=== PATIENT | male | born 1970 | race Caucasian/White ===

== ENCOUNTER 2024-11-23 06:41 | Emergency (ER) | payer OTHER, SELFPAY ==
--- OUTSIDE RECORDS SUMMARY | 2024-02-27 16:30 | XMS_ITS ---
Author Organization [facility] Address Formerly [facility] [address] [id number] Care Team Providers Care Safety And Skill Based Pay Manager Name Role Phone Marci Cole Primary Care Provider Unavaila Keshawn Bernabe Unavailable [phone] Migration, Provider Unavailable Unavailable REASON FOR VISIT Multum To Medispan Conversion Encounter Medications Medication SIG (Take, Route, Frequency, Duration) Notes Start Date End Date Status Flonase Allergy Relief 50 MCG/ACT as directed in each nostril once a day; Duration: 30 day(s) 06/26/2021 Active Encounters Encounter Location Date Provider Diagnosis [facility] [place] [address] [address] [id number] 02/27/2024 Provider Migration Tinnitus, bilateral H93.13 Assessments Encounter Date Diagnosis (ICD Code) Assessment Notes Treatment Notes Treatment Clinical Notes Section Notes 02/27/2024 Tinnitus, bilateral (ICD-10 - H93.13) Plan Of Treatment Medication Medication Name Sig Start Date Stop Date Notes Flonase Allergy Relief 50 MCG/ACT as directed in each nostril once a day; Duration: 30 day(s) 06/26/2021 Progress Notes * Wesley BALDERASDOB:1970 (54 yo M)Acc No.[id number]:02/27/2024 Patient: Wesley CABAN Provider: Masoud Hassan :1970 A ge:53 Y S ex:Male Date:02/27/2024 Address[facility] Pcp:Marci Cole Subjective: * Chief Complaints: * 1 . Multum To Medispan Conversion Encounter. * Medical History: Objective: * Vitals: * Physical Examination: Assessment: * Assessment: 1. T innitus, bilateral - H93.13 (Primary) Plan: * Treatment: * Images: * Electronic signature of Prov ider Migration on 11/23/2024 at 07:59 AM CDT Sign off status: Pending * Provider: Masoud knet Migration Date: 1 04/29/2023 Generated for Tahir bobo/Mariann/Dionesmitting on: 0 11/23/2024 07:59 AM CDT
[2024-11-23] VITALS (8 sets, daily range): BP systolic 115–172; BP diastolic 55–101; PULSE 73–81; RESP 12–20; TEMP 36.6; O2SAT 94–98
--- NOTE | ~2024-11-23 | XR_ITS ---
EXAMINATION: XR chest 2V DATE: 11/23/2024 07:38 INDICATION: Chest pain TECHNIQUE: PA and lateral views of the chest were obtained. COMPARISON: Chest radiograph and CT dated 06/11/2015 FINDINGS: The lungs are clear with no focal airspace opacities, pulmonary edema, pleural effusion or pneumothorax. The cardiomediastinal silhouette is normal. Spinal stimulator leads project over the central canal at the lower thoracic spine with distal tip at level of T10-T11. IMPRESSION: 1. No acute cardiopulmonary disease. Reviewed, dictated and finalized at location A.
--- NOTE | 2024-11-23 06:45 | ECG_ITS ---
Test Date: 2024-11-23 06:49:05 Measurements Intervals [place] Rate: 72 P: 19 WA: 200 QRS: 75 QRSD: 106 T: 42 QT: 384 QTc: 423 Interpretive Statements SINUS RHYTHM INCOMPLETE RIGHT BUNDLE BRANCH BLOCK [90+ ms QRS DURATION, TERMINAL R IN V1/V2, 40+ ms S IN I/aVL/V4/V5/V6] BORDERLINE ECG No previous ECG available for comparison Electronically Signed On 11-23-2024 16:14:42 CDT by Rian Frias M.D.
[2024-11-23 07:04] LABS: Hematocrit 48.5 % (42.0-52.0); Hemoglobin 15.8 g/dL (14.0-18.0); Immature Granulocyte Percent A 0.5 % (0-0.5); Lymphocytes Absolute Auto 1.88 K/mm3 (0.9-3.2); Mean Corpuscular HGB Conc 32.6 g/dl (32-36); Mean Corpuscular Hemoglobin 27.0 pg (26-34); Mean Corpuscular Volume 82.8 fl (80-100); Nucleated Red Blood Cells Absolute Auto 0.000 K/mm3 (0.0-0.012); Nucleated Red Blood Cells Perc 0.0 % (0.0-0.2); Platelet Count Result 315 k/mm3 (150-375); Red Blood Count 5.86 M/mm3 (4.6-6.20); White Blood Count 13.5 K/mm3 (4.5-10.0)
[2024-11-23 07:13] LABS: Alanine Aminotransferase 31 U/L (6-50); Albumin Level 4.6 g/dL (3.5-5.1); Alkaline Phosphatase 80 U/L (38-126); Anion Gap 12 mmol/L (4-12); Aspartate Amino Transferase 28 U/L (17-59); Bilirubin,Total 0.6 mg/dL (0.2-1.3); Blood Urea Nitrogen 8 mg/dL (9-20); Calcium 9.5 mg/dL (8.4-10.2); Carbon Dioxide 23 mmol/L (22-30); Chloride 102 mmol/L (98-107); Estimated CRCL calculation 116 ml/min; Estimated Glomerular Filt Rate > 60; Glucose 113 mg/dL (65-110); Lipase 45 U/L (23-300); Potassium 4.1 mmol/L (3.4-5.0); Sodium 137 mmol/L (137-145); Total Protein 8.1 g/dL (6.3-8.2)
--- NOTE | 2024-11-23 07:15 | ED_ITS ---
HPI - General Adult General Chief complaint: Chest Pain Stated complaint: Chest Pain Time Seen by Provider: 11/23/24 06:55 History of Present Illness HPI narrative: 54-year-old male present to the emergency department for evaluation for left- sided chest pain and body tingling. Patient states that he was driving his vehicle and had some left-sided chest pain. Patient reports he does often have this chest pain typically that is resolved with belching. this morning patient states the knee chest pain did resolve but then he had tingling into his left arm and also had waves of full body tingling. Upon arrival to the emergency department patient denies any chest pain shortness of breath and denies any full body tingling or tingling into his left arm. Patient did have follow-up with his high lead yarder a few weeks ago and is going to schedule an cardiac echo. Patient does follow-up with cardiology at [facility] and patient states his most recent stress test was less than 5 years ago. Patient is a smoker Related Data Home Medications ?Medication ?Instructions ?Recorded ?Confirmed ?Last Taken ?Type buspirone 10 mg tablet 10 mg PO BID 04/15/19 Unkno wn History lisinopril 20 mg tablet 20 mg PO DAILY 04/15/19 Unk nown History lithium carbonate 150 mg capsule 150 mg PO QID 0 Unknown History metformin 500 mg tablet 500 mg PO BID 04/15/19 Unkn own History Allergies Allergy/AdvReac Type Severity Reaction Status Date / Time No Known Allergies Allergy Verified 11/23/24 06:42 Review of Systems 2 Review of Systems: All systems reviewed & are unremarkable except as noted in HPI and below PMFSH Family History Family History (System 02/23/19 @ 20:44 by Rosie Richardson) Sibling Family history of malignant neoplasm Mother Family history of heart disease in male family member before age 55 Social History Social History (System 02/23/19 @ 20:44 by Rosie Richardson) Alcohol intake: current Exam 2 Narrative: APPEARANCE: Well appearing, no pain, no distress, well-nourished. HEAD: normocephalic, atraumatic. EYES: PERRLA/EOMI, conjunctivae clear. NOSE: Normal no drainage EARS:TMS clear with good light reflex. THROAT: Pharynx clear, no exudate. NECK: Supple. No adenopathy, no masses. RESPIRATORY: Airway patent, respirations nonlabored. Clear to auscultation bilaterally, no rales, rhonchi, wheezing. CARDIOVASCULAR: Regular rate and rhythm without murmurs rubs or gallops. ABDOMINAL: Soft, nontender, nondistended, normal bowel sounds MUSCULOSKELETAL: Moves all extremities. Strength/ROM intact, No edema, No calf tenderness. NEURO: Alert. Cranial nerves II through XII intact. Good gait. Good coordination SKIN: Warm, dry. Normal Color Course Vital Signs Vital signs: Vital Signs Temperature 98 F 11/23/24 06:47 Pulse Rate 79 11/23/24 06:47 Respiratory Rate 20 11/23/24 06:47 Blood Pressure 172/101 H 11/23/24 06:47 Pulse Oximetry 98 11/23/24 06:47 Oxygen Delivery Room Air 11/23/24 06:47 Temperature 98 F 11/23/24 06:47 Pulse Rate 76 11/23/24 10:54 Respiratory Rate 12 11/23/24 10:54 Blood Pressure 127/80 11/23/24 10:54 Pulse Oximetry 98 11/23/24 10:54 Oxygen Delivery Room Air 11/23/24 07:02 Medical Decision Making [facility] Narrative Medical decision making narrative: 54-year-old male presents to the emergency department for evaluation for left- sided chest pain. Patient denies any current chest pain. Patient is currently afebrile but does have a leukocytosis of 13.5. Hemoglobin is 15.8. Patient has an INR of 1.02. D-dimer is less than 0.27. No acute abnormalities on the CMP patient had negative serial troponins. EKGs showed no evidence of acute STEMI but did show a right bundle branch block. Chest x-ray shows no acute cardiopulmonary abnormality. With patient's heart score and symptoms and workup in the emergency department patient is suitable for discharge to close follow-up with primary care physician for additional outpatient cardiac testing. All questions concerns were addressed patient was comfortable the plan for discharge and close follow-up. Differential Diagnosis Differential Diagnosis: ACS, pneumonia, pneumothorax, pulmonary embolism, anxiety, hyperventilation, gastritis Vital Signs Vital Signs: Vital Signs Temperature 98 F 11/23/24 06:47 Pulse Rate 79 11/23/24 06:47 Respiratory Rate 20 11/23/24 06:47 Blood Pressure 172/101 H 11/23/24 06:47 Pulse Oximetry 98 11/23/24 06:47 Oxygen Delivery Room Air 11/23/24 06:47 Temperature 98 F 11/23/24 06:47 Pulse Rate 76 11/23/24 10:54 Respiratory Rate 12 11/23/24 10:54 Blood Pressure 127/80 11/23/24 10:54 Pulse Oximetry 98 11/23/24 10:54 Oxygen Delivery Room Air 11/23/24 07:02 Lab Data Lab results reviewed: Yes I reviewed the patient's lab results. 11/23/24 06:55 11/23/24 06:55 Labs: Lab Results 11/23/24 11/23/24 Range/Units 06:55 09:44 WBC 13.5 H (4.5-10.0) K/mm3 RBC 5.86 (4.6-6.20) M/mm3 Hgb 15.8 (14.0-18.0) g/dL Hct 48.5 (42.0-52.0) % MCV 82.8 (80-100) fl MCH 27.0 (26-34) pg MCHC 32.6 (32-36) g/dl RDW 14.4 (11.5-14.5) % Plt Count 315 (150-375) k/mm3 MPV 10.5 H (7.4-10.4) fl Immature Gran % (Auto) 0.5 (0-0.5) % Neut % (Auto) 78.3 H (45.5-73.1) % Lymph % (Auto) 13.9 L (18.3-44.2) % [place] % (Auto) 4.9 (2.6-8.5) % Eos % (Auto) 1.7 (0-4.4) % Baso % (Auto) 0.7 (0.2-1.2) % Lymph # (Auto) 1.88 (0.9-3.2) K/mm3 [place] # (Auto) 0.7 H (0.1-0.6) K/mm3 Eos # (Auto) 0.2 (0-0.3) K/mm3 Baso # (Auto) 0.1 (0.0-0.1) K/mm3 Abs Immat Gran (auto) 0.07 H (0.00-0.031) K/mm3 Absolute Neuts (auto) 10.6 H (1.3-6.7) K/mm3 Absolute Nucleated RBC 0.000 (0.0-0.012) K/mm3 Nucleated RBC % 0.0 (0.0-0.2) % PT 13.7 (11.1-14.7) Seconds INR 1.0 APTT 34.1 (22.3-36.8) Seconds D-Dimer < 0.27 (<0.48) ug/mL Sodium 137 (137-145) mmol/L Potassium 4.1 (3.4-5.0) mmol/L Chloride 102 (98-107) mmol/L Carbon Dioxide 23 (22-30) mmol/L Anion Gap 12 (4-12) mmol/L BUN 8 L (9-20) mg/dL Creatinine 1.10 (0.7-1.3) mg/dL Estim Creat Clear Calc 116 ml/min Estimated GFR > 60 (59 - ) Glucose 113 H (65-110) mg/dL Calcium 9.5 (8.4-10.2) mg/dL Total Bilirubin 0.6 (0.2-1.3) mg/dL AST 28 (17-59) U/L ALT 31 (6-50) U/L Alkaline Phosphatase 80 (38-126) U/L Troponin I < 0.012 < 0.012 (0.000-0.034) ng/mL Total Protein 8.1 (6.3-8.2) g/dL Albumin 4.6 (3.5-5.1) g/dL Lipase 45 (23-300) U/L Imaging Data Radiologist's impression: Impressions Chest X-Ray 11/23/24 07:40 IMPRESSION: 1. No acute cardiopulmonary disease. ECG Data EKG #1: EKG Interpretation: normal rate, sinus rhythm, no ectopy, non-specific ST changes, normal QRS and NL axis Discharge Plan Discharge Clinical Impression: Atypical chest pain Patient Disposition: Home Condition: Stable Instructions: Antibiotic Form, Chest Pain (ED) Additional Instructions: Have close follow-up with your primary care physician for additional outpatient cardiac testing. If you have any worsening symptoms then please call or return to the emergency department. Patient Language: Indonesian Prescriptions: No Action pantoprazole 40 mg tablet,delayed release (DR/EC) 40 mg PO BID Qty: 180 1RF atorvastatin 20 mg tablet 20 mg PO DAILY Qty: 90 1RF buspirone 10 mg tablet 10 mg PO BID lithium carbonate 150 mg capsule 150 mg PO QID metformin 500 mg tablet 500 mg PO BID lisinopril 20 mg tablet 20 mg PO DAILY Follow-up/Referrals: Chuck Srinivasan MD [Physician, Family Practice] UNKNOWN,DOCTOR [Primary Care Provider] Stand Alone Forms: Work/School Release IP Quality HEART score for chest pain patients History: slightly suspicious ECG: normal Age: > 45 and < 65 years Risk factors: 1 or 2 risk factors Troponin: < or = to 1x normal limit Heart score: 2
[2024-11-23 07:25] LABS: Troponin I < 0.012 ng/mL (0.000-0.034)
[2024-11-23 07:27] LABS: INR 1.0; Prothrombin Time 13.7 Seconds (11.1-14.7)
[2024-11-23 07:28] LABS: Partial Thromboplastin Time 34.1 Seconds (22.3-36.8)
--- OUTSIDE RECORDS SUMMARY | 2024-11-23 08:00 | XMS_ITS | Patient Health Record ---
Author Organization [facility] Address [address] [address] [place], [place] [id number] Care Team Providers Care Packaging Inspector Name Role Phone Marci Cole Primary Care Provider Unavaila Keshawn Bernabe Unavailable [phone] Migration, Provider Unavailable Unavailable Allergies No Known Allergies Reason For Referral No Information Medications Medication SIG (Take, Route, Frequency, Duration) Notes Start Date End Date Status Flonase Allergy Relief 50 MCG/ACT as directed in each nostril once a day; Duration: 30 day(s) 06/26/2021 Active Problems Problem Type SNOMED Code ICD Code Onset Dates Problem Status W/U Status Risk Notes Problem Mixed conductive and sensorineural hearing loss, bilateral (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, 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) Active confirmed Problem Bilateral tinnitus (5046108910308) Tinnitus, bilateral (H93.13) Active confirmed Problem Bilateral chronic serous otitis (282522983) Chronic serous otitis media, bilateral (H65.23) Active confirmed Problem Dysfunction of bilateral eustachian tubes (6309029843962763 ) Other specified disorders of Eustachian tube, bilateral (H69.83) Active confirmed Problem Tobacco use (883517982) Tobacco use (Z72.0) Active confirmed Problem Type II diabetes mellitus without complication (009011629) Type 2 diabetes mellitus without complications (E11.9) Active confirmed Encounters Encounter Location Date Provider Diagnosis [facility] [place] [address] [address] [place], [place] [phone] 02/27/2024 Provider Migration Tinnitus, bilateral H93.13 Assessments Encounter Date Diagnosis (ICD Code) Assessment Notes Treatment Notes Treatment Clinical Notes Section Notes 02/27/2024 Tinnitus, bilateral (ICD-10 - H93.13) Plan Of Treatment No Information Insurance Providers Payer Name Payer Address Payer Phone Subscriber Number Group Number Insured Name Patient Relationship to Insured Coverage Start Date Coverage End Date [facility] [address] [place] [phone] [id number] Wesley Hyman Self - patient is the insured Medical (General) History Medical History History ICD Code Pertinent Medical History: Ear problems, Mitral valve prolapse, Surgical History Surgery Date(Month/Year) back sx x2 knee surgery x2 hand sx
--- OUTSIDE RECORDS SUMMARY | 2024-11-23 08:00 | XMS_ITS | Clinical Summary ---
Author Organization [facility] Address [address] [place] [address] Care Team Providers Care Patternmaker Pressure Cast Name Role Phone None, Provider MD Primary Care Provider Unavaila ble Allergies No known active allergies Medications lidocaine viscous 2 % solution Take 5 mLs by mouth as needed for Pain. Gargle and spit 20 mL 2 Active tirzepatide (MOUNJARO) 7.5 MG/0.5ML injection Inject 7.5 mg into the skin once a week. Active LISINOPRIL OR Active ondansetron (ZOFRAN-ODT) 4 MG disintegrating tablet Take 1 tablet (4 mg total) by mouth every 8 (eight) hours as needed for Nausea. 20 tablet 4 Active Social History Tobacco Use Types Packs/Day Years Used Date Smoking Tobacco: Every Day Cigarettes Smokeless Tobacco: Never Tobacco Cessation:Ready to Q uit: Not Asked; Counseling Given: Not Answered Sex and Gender Information Value Date Recorded Sex Assigned at Not on file Legal Sex Male 8:24 PM CDT Gender Identity Not on file Sexual Orientation Not on file Last Filed Vital Signs Vital Sign Reading Time Taken Comments Blood Pressure 150/89 07/22/2023 8:15 PM CDT Pulse 83 07/22/2023 8:15 PM CDT Temperature 36.2 C (97.1 F) 07/22/2023 6:16 PM CDT Respiratory Rate 12 07/22/2023 8:15 PM CDT Oxygen Saturation 94% 07/22/2023 8:15 PM CDT Inhaled Oxygen Concentration - - Weight 170.1 kg (375 lb) 07/22/2023 6:16 PM CDT Height 198.1 cm (6' 6) 07/22/2023 6:16 PM CDT Body Mass Index 43.34 07/22/2023 6:16 PM CDT Plan of Treatment Health Maintenance Due Date Last Done Comments Colorectal Cancer Screening Colonoscopy (10 Years) 1972 Annual Physical 1975 Hepatitis C 1990 DTaP, Tdap and Td Vaccines ( 1 - Tdap) 1991 Hepatitis B Vaccines (1 of 3 - 19+ 3-dose series) 1991 Pneumococcal Vaccine: 50+ Ye ars (1 of 2 - PCV) 1991 Zoster Vaccines (1 of 2) 2022 COVID-19 Vaccine (1 - 2023-2 5 season) 2024 Meningococcal B Vaccine Aged Out No l onger eligible based on patient's age to complete this topic Meningococcal Vaccine Aged Out No jake elizabeth eligible based on patient's age to complete this topic RSV Immunizations Under 20 Months Aged Out No longer eligible based on patient's age to complete this topic Insurance [employer] Care Teams Patternmaker Pressure Cast Relationship Specialty Start Date End Date None, Provider, MD PCP - General UNKNOWN PHYSICIAN SPECIALTY 07/22/23
--- OUTSIDE RECORDS SUMMARY | 2024-11-23 08:00 | XMS_ITS | Clinical Summary ---
Author Organization [facility] [employer] Address [address] [address] Care Team Providers Care Coffee Grower Name Role Phone Donis Hanley MD Primary Care Provider Source Comments [facility] [employer],non-owned Affiliates and Associated Physician Practices is amultiple site organization consisting of ambulatory clinics and hospital sitesin [place], [place], [place] and [place]. This disclosure is being madepursuant to the Care Everywhere program and may not contain all information available regarding this patient. Last updated 17.[facility] [employer] Allergies No known active allergies Medications * Be aware that medications may not be up to date on this document. Alwaysverify current medications with the patient. pantoprazole EC (Protonix) 40 MG tabletIndication s:Gastroesophage al reflux disease, unspecified whether esophagitis present Take 1 (one) tablet by mouth 2 times daily 180 tablet 10/13/19 25 Active lisinopril (Prinivil; Zestril) 30 MG tabletIndication s:Hypertension, unspecified type Take 1 (one) tablet by mouth once daily 90 tablet 10/13/19 25 Active FLUoxetine (PROzac) 40 MG capsuleIndicatio ns:Moderate recurrent major depression (HCC) Take 1 (one) capsule by mouth every morning 90 capsule 4 10/13/19 25 Active tirzepatide (Mounjaro) 15 MG/0.5ML injectionIndicat ions:Diabetes mellitus without complication (HCC) Inject 15 (fifteen) mg subcutaneously every 7 days (once a week) 6 mL 10/13/19 25 Active Active Problems Problem Noted Date Diagnosed Date Bilateral chronic serous otitis media 10/24/2024 Bilateral tinnitus 10/24/2024 Dysfunction of both eustachian tubes 10/24/2024 Mixed conductive and sensorineural hearing loss, bilateral 10/24/2024 Tobacco use 10/24/2024 Type 2 diabetes mellitus without complication Leukocytosis 12/10/2021 Encounters Date Type Department Care Team Description 11/08/2024 9:40 AM CDT Office Visit [facility] [address] [facility] [facility] [address] [place] [address] Nathalie Salamanca MD Incomplete right bundle branch block (Primary Dx); RBBB (right bundle branch block); Hypertension, unspecified type; Tobacco use; SOB (shortness of breath); Chest pain, unspecified type 10/12/2024 11:40 AM CDT Office Visit [address] [address] Jumana Cole PA-C Diabetes mellitus without complication (HCC) (Primary Dx); Obesity, Class II, BMI 35-39.9; Hypertension, unspecified type; Hyperlipidemia, unspecified hyperlipidemia type; Gastroesophageal reflux disease, unspecified whether esophagitis present; History of Barber's esophagus; RBBB (right bundle branch block); MAHAMED (obstructive sleep apnea); Moderate recurrent major depression (HCC) 10/12/2024 Travel 09/22/[address] [address] Jumana Cole PA-C MEDICATION REFILL 09/22/2024 Refill [facility] [address] [facility] [address] [place] [address] Jumana Cole PA-C MEDICATION REFILL from Last 3 Months Family History Medical History Relation Name Comments Cancer - Thyroid Brother Diabetes; unknown type Father Obesity Father Brain Tumor Mother COPD - Chronic Obstructive Pulmonary Disease Mother Heart Failure Mother Cancer - Colon Neg Hx Colon polyps Neg Hx Relation Name Status Comments Brother Alive Father Mother Alive Social History Tobacco Use Types Packs/Day Years Used Date Smoking Tobacco: Every Day Cigarettes 1 35.7 Started: 03/1989 Smokeless Tobacco: Never Tobacco Cessation:Ready to Q uit: Not Asked; Counseling Given: Not Answered Alcohol Use Standard Drinks/Week Comments Yes 0 (1 standard drink = 0.6 oz pur e alcohol) occassionally PHQ-2 Answer Date Recorded Patient Health Questionnaire-2 Score 4 10/11/2024 Sex and Gender Information Value Date Recorded Sex Assigned at Not on file Legal Sex Male 12:45 PM CDT Gender Identity Not on file Sexual Orientation Not on file Last Filed Vital Signs Vital Sign Reading Time Taken Comments Blood Pressure 130/86 11/08/2024 9:09 AM CDT Pulse 80 11/08/2024 9:09 AM CDT Temperature 36.1 C (96.9 F) 10/12/2024 11:21 AM CDT Respiratory Rate 13 10/12/2024 11:21 AM CDT Oxygen Saturation 98% 11/08/2024 9:09 AM CDT Inhaled Oxygen Concentration - - Weight 155.6 kg (343 lb) 11/08/2024 9:09 AM CDT Height 198.1 cm (6' 6) 11/08/2024 9:09 AM CDT Body Mass Index 39.64 11/08/2024 9:09 AM CDT Plan of Treatment Upcoming Encounters Date Type Department Care Team (Late st Contact Info) Description 11/30/2024 3:30 PM CDT Appointment [facility] [address] [facility] [address] [place] [address] 01/03/2025 3:10 PM CDT Office Visit [facility] [address] [place] [address] Nathalie Salamanca MD [address] [facility] [address] [place] [address] 01/18/2025 2:20 PM DESIGN MAINTENANCE ENGINEER Office Visit [facility] [address] [place] [address] Jumana Cole PA-C [address] [place] [address] 05/25/2025 9:20 AM CDT Office Visit [facility] - Family Medicine [address] [place] [address] [place] [address] [place] [phone] Health Maintenance Due Date Last Done Comments COLOGUARD (AGES 45-75) - COLON CA SCREENING 1972 CT COLONOGRAPHY - COLON CA SCREENING 1972 FIT - COLON CA SCREENING 1972 FLEX SIG - COLON CA SCREENING 1972 HIV SCREENING 1987 HEPATITIS C SCREENING 04/04/1990 DTAP/TDAP/TD VACCINES (1 - Tdap) 1991 HEPATITIS B VACCINE (1 of 3 - 19+ 3-dose series) 1991 PNEUMOCOCCAL VACCINE 50+ (1 of 2 - PCV) 1991 DIABETES-STATIN 2012 LUNG CANCER SCREENING 2022 ZOSTER VACCINE (1 of 2) 2022 EGD SURVEILLANCE 11/23/2023 10/28/2019, 10/28/2019 DIABETES - URINE PROTEIN SCREENING 03/16/2024 DIABETES RETINOPATHY SCREENING 10/24/2024 DIABETES-FOOT EXAM WITH MONOFILAMENT 10/24/2024 DIABETES-HGB A1C 10/24/2024 COVID-19 VACCINE ( - season) 2024 INFLUENZA VACCINE (#1) 2024 DIABETES-SERUM CREATININE 11/23/20242023, 07/22/2023, 07/22/2023, Additional history exists COLON MONITORING 10/27/2029 10/28/2019, 10/28/2019 COLONOSCOPY - COLON CA SCREENING 10/27/2029 10/28/2019, 10/28/2019 Colorectal Cancer Screening 10/27/2029 DEPRESSION SCREENING Completed 10/12/2024, 12/24/19 22 HIB VACCINE Aged Out No longer eligi ble based on patient's age to complete this topic HPV VACCINE Aged Out No longer eligi ble based on patient's age to complete this topic MENINGOCOCCAL (Group B) VACCINE SHARED DECISION-MAKING Aged Out No longer eligible based on patient's age to complete this topic MENINGOCOCCAL GROUPS A/C/Y/W VACCINE Aged Out No longer eligible based on patient's age to complete this topic Procedures Procedure Name Priority Date/Time Associated Diagnosis Comments EKG 12-LEAD Routine 11/08/2024 10:26 AM CDT RBBB (right bundle branch block) COMPREHENSIVE METABOLIC PANEL Routine 01/16/2022 11:39 AM CDT Leukocytosis, unspecified type ENDOSCOPY, COLON, DIAGNOSTIC Routine 10/28/2019 11:35 AM CDT EGD Routine 10/28/2019 11:09 AM CDT from Last 3 Months or Most Recently Relevant to Health Maintenance Results * EKG 12-Lead (11/08/2024 10:26 AM CDT) Ventricular Rate 79 BPM [facility] MED GRP MUSE Atrial Rate 79 BPM [facility] ME D GRP MUSE P-R Interval 180 ms SJ SL M ED GRP MUSE QRS Duration ms 110 ms SJ S L MED GRP MUSE Q-T Interval ms 390 ms SJ S L MED GRP MUSE QTC Calculation (Bezet) 447 ms S[facility] SL MED GRP MUSE Calculated P Mason 36 degrees S[facility] SL MED GRP MUSE Calculated R Mason 120 degrees SJ SL MED GRP MUSE Calculated T Mason 48 degrees S[facility] SL MED GRP MUSE Interpretation EKG Normal sinus rhythm Right axis deviation Incomplete right bundle branch block Abnormal ECG Confirmed by MARK PEREZ ([id number]) on 11/11/2024 5:29:01 PM [facility] MED GRP MUSE 11/08/2024 10:2 6 AM CDT 11/11/2024 5:29 PM CDT us Nathalie Salamanca MD ECG ORDERABLES Edited Result - Final [facility] MED GRP MUSE * (ABNORMAL) COMPREHENSIVE METABOLIC PANEL (01/16/2022 11:39 AM CDT) Glucose 136(H) 70 - 105 mg/dL [facility] INSURANCE BILL BUN 11 8.9 - 20.6 mg/dL [facility] INSURANCE BILL Creatinine 1.05 0.72 - 1.25 mg/dL [facility] INSURANCE BILL eGFR by CKD-EPI 87(L) >=90 mL/min/1.7 3 m2 [facility] INSURANCE BILL Sodium 137 136 - 145 mmol/L [facility] INSURANCE BILL Potassium 4.7 3.5 - 5.1 mmol/L [facility] INSURANCE BILL Chloride 100 98 - 107 mmol/L [facility] INSURANCE BILL CO2 27 23 - 31 mmol/L [facility] INSURANCE BILL Calcium 9.4 8.4 - 10.4 mg/dL [facility] INSURANCE BILL Protein Total 7.1 6.4 - 8.3 gm/dL [facility] INSURANCE BILL Albumin 4.4 3.5 - 5.2 gm/dL [facility] INSURANCE BILL Bilirubin Total 0.4 0.2 - 1.2 mg/dL [facility] INSURANCE BILL Alkaline Phosphatase 63 40 - 150 U/L [facility] INSURANCE BILL AST 27 5 - 34 U/L [facility] INSURANCE BILL ALT 45 0 - 61 U/L [facility] INSURANCE BILL Blood BLOOD SPECIMEN / Unknown 01/16/2022 11:39 AM CDT 01/16/2022 Narrative Resulting Agency Comment Lab Testing performed at: [facility] [address] [place] [id number] Guera Machado MD LAB - CHEMISTRY ORDERABLES Final Result [facility] INSURANCE BILL [address] [place] [address] * ENDOSCOPY, COLON, DIAGNOSTIC (10/28/2019 11:35 AM CDT) Report Endoscopy POC _ Patient Name: Dawson Hyman Procedure Date: 10/28/2019 11:35 AM Date of : 1970 Admit Type: Outpatient Age: 49 Gender: Male Attending MD: Roger Christopher , _ Procedure: Colonoscopy Indications: Change in bowel habits Providers: Roger Christopher (Doctor) Patient Profile: This is a 49 year old male. Medicines: Monitored Anesthesia Care Complications: No immediate complications. _ Procedure: Pre-Anesthesia Assessment: - Prior to the procedure, a History and Physical was performed, and patient medications and allergies were reviewed. The patient's tolerance of previous anesthesia was also reviewed. The risks and benefits of the procedure and the sedation options and risks were discussed with the patient. All questions were answered, and informed consent was obtained. Prior Anticoagulants: The patient has taken no previous anticoagulant or antiplatelet agents. ASA Grade Assessment: II - A patient with mild systemic disease. After reviewing the risks and benefits, the patient was deemed in satisfactory condition to undergo the procedure. After I obtained informed consent, the scope was passed under direct vision. Throughout the procedure, the patient's blood pressure, pulse, and oxygen saturations were monitored continuously. The Colonoscope was introduced through the anus and advanced to the cecum, identified by appendiceal orifice and ileocecal valve. The appendiceal orifice was photographed. The colonoscopy was performed with ease. The patient tolerated the procedure well. The quality of the bowel preparation was good. Findings: Two sessile polyps were found in the rectum. These polyps were removed with a cold biopsy forceps. Resection and retrieval were complete. The sigmoid colon, descending colon, splenic flexure, transverse colon, hepatic flexure, ascending colon and cecum appeared normal. Biopsies for histology were taken with a cold forceps from the ascending colon, transverse colon and descending colon for evaluation of microscopic colitis. _ Impression: - Two polyps in the rectum, removed with a cold biopsy forceps. Resected and retrieved. - The sigmoid colon, descending colon, splenic flexure, transverse colon, hepatic flexure, ascending colon and cecum are normal. Recommendation: - Patient has a contact number available for emergencies. The signs and symptoms of potential delayed complications were discussed with the patient. Return to normal activities tomorrow. Written discharge instructions were provided to the patient. - Resume previous diet. - Continue present medications. - Await pathology results. - Repeat colonoscopy in 5 years for surveillance. - Telephone endoscopist for pathology results in 1 week. Procedure Code(s): --- Professional --- 53104, Colonoscopy, flexible; with biopsy, single or multiple --- Technical --- 31390, Colonoscopy, flexible; with biopsy, single or multiple Diagnosis Code(s): --- Professional --- K62.1, Rectal polyp R19.4, Change in bowel habit --- Technical --- K62.1, Rectal polyp R19.4, Change in bowel habit CPT copyright 2017 [employer]. All rights reserved. The codes documented in this report are preliminary and upon supervisor of research review may be revised to meet current compliance requirements. ____ Roger Christopher, 10/28/2019 12:00:20 PM Number of Addenda: 0 Note Initiated On: 10/28/2019 11:35 AM [facility] 10/28/2019 11:3 5 AM CDT us Roger Christopher MD GI PROCEDURE ORDERABLES E dited Result - Final [facility] * EGD (10/28/2019 11:09 AM CDT) Report Endoscopy POC _ Patient Name: Dawson Hyman Procedure Date: 10/28/2019 11:09 AM Date of : 1970 Admit Type: Outpatient Age: 49 Gender: Male Attending MD: Roger Christopher , _ Procedure: Upper GI endoscopy Indications: Heartburn, Barber's esophagus, Diarrhea Providers: Roger Christopher (Doctor) Patient Profile: This is a 49 year old male. Referring MD: Roger Christopher (Referring MD) Medicines: Monitored Anesthesia Care Complications: No immediate complications. _ Procedure: Pre-Anesthesia Assessment: - Prior to the procedure, a History and Physical was performed, and patient medications and allergies were reviewed. The patient's tolerance of previous anesthesia was also reviewed. The risks and benefits of the procedure and the sedation options and risks were discussed with the patient. All questions were answered, and informed consent was obtained. Prior Anticoagulants: The patient has taken no previous anticoagulant or antiplatelet agents. ASA Grade Assessment: II - A patient with mild systemic disease. After reviewing the risks and benefits, the patient was deemed in satisfactory condition to undergo the procedure. After obtaining informed consent, the endoscope was passed under direct vision. Throughout the procedure, the patient's blood pressure, pulse, and oxygen saturations were monitored continuously. The Endoscope was introduced through the mouth, and advanced to the second part of duodenum. The upper GI endoscopy was accomplished with ease. The patient tolerated the procedure well. Findings: There were esophageal mucosal changes consistent with long-segment Barber's esophagus present in the lower third of the esophagus. This was biopsied with a cold forceps for histology. The upper third of the esophagus and middle third of the esophagus were normal. Patchy erythematous mucosa was found in the gastric body and in the gastric antrum. Biopsies were taken with a cold forceps for Helicobacter pylori testing using CLOtest. The cardia, gastric fundus and pylorus were normal. The duodenal bulb and second portion of the duodenum were normal. Biopsies for histology were taken with a cold forceps for evaluation of celiac disease. _ Impression: - Esophageal mucosal changes consistent with long-segment Barber's esophagus. Biopsied. - Normal upper third of esophagus and middle third of esophagus. - Erythematous mucosa in the gastric body and antrum. Biopsied. - Normal cardia, gastric fundus and pylorus. - Normal duodenal bulb and second portion of the duodenum. Biopsied. Recommendation: - Patient has a contact number available for emergencies. The signs and symptoms of potential delayed complications were discussed with the patient. Return to normal activities tomorrow. Written discharge instructions were provided to the patient. - Resume previous diet. - Continue present medications. - Await pathology results. - Telephone endoscopist for pathology results in 1 week. Procedure Code(s): --- Professional --- 79612, Esophagogastroduo denoscopy, flexible, transoral; with biopsy, single or multiple --- Technical --- 92634, Esophagogastroduo denoscopy, flexible, transoral; with biopsy, single or multiple Diagnosis Code(s): --- Professional --- K22.70, Barber's esophagus without dysplasia K31.89, Other diseases of stomach and duodenum R12, Heartburn R19.7, Diarrhea, unspecified --- Technical --- K22.70, Barber's esophagus without dysplasia K31.89, Other diseases of stomach and duodenum R12, Heartburn R19.7, Diarrhea, unspecified CPT copyright 2017 [employer]. All rights reserved. The codes documented in this report are preliminary and upon supervisor of research review may be revised to meet current compliance requirements. ____ Roger Christopher, 10/28/2019 11:57:54 AM Number of Addenda: 0 Note Initiated On: 10/28/2019 11:09 AM [facility] 10/28/2019 11:0 9 AM CDT Roger Christopher MD GI PROCEDURE ORDERABLES E dited Result - Final [facility] from Last 3 Months or Most Recently Relevant to Health Maintenance Insurance [employer] Care Teams Coffee Grower Relationship Specialty [place] [id number] [place] [id number] PCP - General Family Medicine 10/11/24
--- OUTSIDE RECORDS SUMMARY | 2024-11-23 08:00 | XMS_ITS | Encounter Summary ---
Author Organization [facility] Address [address] [place] [address] Care Team Providers Care Product Controller Name Role Phone Guera Machado MD Unavailable [phone] Jumana Cole PA-C Primary Care Provider Donis Hanley MD Primary Care Provider [phone] Encounter Details Date Type Department Care Team (Late st Contact Info) Description 04/16/2023 Lab Requisition [facility] - DermPath Lab [address] ([place], [place]), [place] [address] [facility] [address] [place] [phone] Neoplasm of uncertain behavior of skin; Other viral warts Social History Tobacco Use Types Packs/Day Years Used Date Smoking Tobacco: Never Assessed PHQ-2 Answer Date Recorded PHQ2 TOTAL SCORE 2 01/16/2022 Sex and Gender Information Value Date Recorded Sex Assigned at Not on file Legal Sex Male 12:45 PM CDT Gender Identity Not on file Sexual Orientation Not on file documented as of this encounter Functional Status * Is person deaf or have serious hearing difficulty? Answer Date of Assessment Author No 10/28/2019 11:59 AM CDT Aziza Carver RN * Is person blind or have serious difficulty seeing? Answer Date of Assessment Author No 10/28/2019 11:59 AM CDT Aziza Carver RN * Does person have serious difficulty walking/climbing stairs? Answer Date of Assessment Author No 10/28/2019 11:59 AM CDT Aziza Carver RN * Does person have difficulty dressing/bathing? Answer Date of Assessment Author No 10/28/2019 11:59 AM ISAELT Aziza Carver RN * Does person have difficulty doing errands alone? Answer Date of Assessment Author No 10/28/2019 11:59 AM Aziza Teran RN documented as of this encounter Mental Status * Does person have difficulty concentrating/remembering/making decisions? Answer Entry Date Author No 10/28/2019 11:59 AM Aziza Teran RN documented in this encounter Plan of Treatment Upcoming Encounters Date Type Department Care Team (Late st Contact Info) Description 11/30/2024 3:30 PM CDT Appointment [facility] [address] [place] [address] 01/03/2025 3:10 PM CDT Office Visit [facility] [address], [address] [place] [address] Nathalie Salamanca MD [address] [facility] [address] [place] [address] 01/18/2025 2:20 PM [employer]ER Office Visit [address] [place] [address] Jumana Cole PA-C [address] [place] [address] 05/25/2025 9:20 AM CDT Office [address] [place] [phone] [place] [address] [phone] documented as of this encounter Procedures Procedure Name Priority Date/Time Associated Diagnosis Comments DERMATOPATHOLOGY Routine 04/16/2023 3:33 AM [employer]IOR [employer] ENGINEER Neoplasm of uncertain behavior of skin Other viral warts documented in this encounter Results * DERMATOPATHOLOGY (04/16/2023 3:33 AM SENIOR [employer] SYSTEM[employer] ENGINEER) Case Report Dermatopathology Report Case: [id number] Authorizing Provider: Bogdan Morgan MD Collected: 04/16/2023 03:33 AM Ordering Location: [facility] Lab Received: 04/17/2023 04:42 PM Pathologist: Kassie Whaley MD Specimens: A) - Skin, left elbow B) - Skin, left medial superior eyelid 2:54 PM S[employer] ENGINEER DERMATOPATHOLOGY LABORATORY Final Diagnosis Specimen A. 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 SKIN, left medial superior eyelid: INVERTED FOLLICULAR KERATOSIS, INFLAMED; SUPERFICIAL PORTIONS OF (L82.1) (see microscopic description) 2:54 PM [facility] DERMATOPATHOLOGY LABORATORY at [address] [employer] Clinical History A: Squamous Cell carcinoma vs. Prurigo B: Wart 2:54 PM [facility] DERMATOPATHOLOGY LABORATORY Gross Description Specimen A: Received is one formalin filled container labeled with the patient's name and designated left elbow. The specimen consists of 2 (two) pieces of a shave biopsy measuring 14x8x3, 9x7x3 mm. Jar 0. Specimen B: Received is one formalin filled container labeled with the patients name and designated left medial superior eyelid. The specimen consists of a shave removal measuring 8x8x5 mm. Jar 0. 2:54 PM [facility] DERMATOPATHOLOGY LABORATORY Microscopic Description Specimen A. SKIN, left elbow: There is psoriasiform epidermal hyperplasia, compact hyperkeratosis, and fibrosis of the papillary dermis associated with a superficial perivascular lymphohistiocytic infiltrate. This lesion is broadly transected at the base of the specimen. COMMENT: If this specimen is sampled from a larger lesion, these findings may not be sales representative church furniture of the entire lesion. Clinicopathologic correlation is recommended. Specimen B. SKIN, left medial superior eyelid: Sections show superficial portions of an endophytic lesion with acanthosis consisting of fairly uniform squamous cells with eosinophilic cytoplasm. Squamous eddies are seen toward the base of the lesion. There is a lymphohistiocytic infiltrate within the dermis. Ki67 immunostain is positive in predominantly basilar intraepidermal keratinocytes. Multiple additional deeper sections were obtained and reviewed. 4 2:54 PM [facility] DERMATOPATHOLOGY LABORATORY Disclaimer An external and internal positive and negative controls are appropriate for the histochemical, immunohistochemical and immunofluorescence stain(s) in this case (if any), except where stated explicitly. The performance characteristics of the stain(s) cited in this report were developed and its performance characteristic determined by the Dermatopathology Laboratory at [facility], directed by Dr. Tim Ponce. These tests need not be, and therefore are not, approved by the [place] Food and Drug Administration. The tests are used for clinical purposes. Billing Codes Specimen Charges Stain Charges 98533 13164 1 1 80983 1 4 2:54 PM SENIOR [employer] ENGINEER DERMATOPATHOLOGY LABORATORY Embedded Images 4 2:54 PM SENIOR [employer] SYSTEM[employer] ENGINEER DERMATOPATHOLOGY LABORATORY Pathology/Cytology TISSUE SPECIMEN FROM SKIN / Unknown 04/16/2023 3:33 AM SENIOR [employer] SYSTEM[employer] ENGINEER 04/17/2023 4:42 PM S[employer]IOR [employer] ENGINEER Miscellaneous samples (specimen) TISSUE SPECIMEN FROM SKIN / Unknown 04/16/2023 3:33 AM SENIOR [employer] SYSTEMS ENGINEER 04/17/2023 4:42 PM S[employer]IOR [employer] ENGINEER Bogdan Morgan MD LAB - PATHOLOGY/CYTOLOGY ARVIND AHMADI Final Result DERMATOPATHOLOGY LABORATORY [facility] - Department of Dermatology [facility] [address] [place] [address], [address] [place] [address], [facility] [phone] documented in this encounter Visit Diagnoses Diagnosis Neoplasm of uncertain behavior of skin Other viral warts documented in this encounter Care Teams Product Controller Relationship Specialty Start Date End Date Jumana Cole PA-C [address] [place] [phone] PCP - General Physician Alteration Worker 12/10/21 10/10/24 [place] [address] [address] PCP - General Family Medicine 10/11/24 Guera Machado MD Medical Oncology 12/10/21 10/11/24 documented as of this encounter
[2024-11-23 10:14] LABS: Troponin I < 0.012 ng/mL (0.000-0.034)
--- NOTE | 2024-11-23 10:22 | ECG_ITS ---
Test Date: 2024-11-23 10:25:56 Measurements Intervals [place] Rate: 68 P: 16 CT: 198 QRS: 70 QRSD: 112 T: 35 QT: 406 QTc: 435 Interpretive Statements SINUS RHYTHM LOW QRS VOLTAGE IN PRECORDIAL LEADS [QRS DEFLECTION < 1.0 mV IN CHEST LEADS] INCOMPLETE RIGHT BUNDLE BRANCH BLOCK [90+ ms QRS DURATION, TERMINAL R IN V1/V2, 40+ ms S IN I/aVL/V4/V5/V6]+ BORDERLINE ECG Compared to ECG 11/23/2024 06:49:05 NO DIFFERENCE Electronically Signed On 11-23-2024 16:20:19 CDT by Rian Frias M.D.
== END 2024-11-23 10:56 | disposition home or self-care (01) ==
PROVIDERS: Emergency Medicine; Emergency Provider Emergency Medicine
DX: R07.89 Other chest pain (principal); I45.10 Unspecified right bundle-branch block
CPT/HCPCS: 36415; 71046; 80053; 83690; 84484; 85025; 85380; 85610; 85730; 93005; 99284